=== PATIENT | female | born 1955 | race Caucasian/White ===

== ENCOUNTER 2017-09-26 06:36 | Day surgery (SDC) | payer OTHER, SELFPAY ==
--- NOTE | 2017-09-22 16:42 | PCM.HP.BLA ---
History and Physical DATE OF SERVICE: 09/26/2017 SCHEDULED PROCEDURE: Open reduction internal fixation right proximal humerus HISTORY OF PRESENT ILLNESS: This is a 61-year-old female who presented to [facility] due to a fall on ice on September 15, 2017. Patient was evaluated in the emergency room department at [facility] and placed in a sling. Patient sustained a fracture of the proximal humerus. Patient is right-hand dominant. Patient has increased pain which is constant, sharp, and stabbing with any motion of the right upper extremity. She does note improvement with immobilization. She has been using Tylenol and Advil for pain control. Patient does not recall any shoulder pain prior to this fall. Patient did undergo a CT scan of the right shoulder which did reveal a comminuted impacted fracture of the humeral head neck junction. After discussion with Dr. Mi, the patient would like to proceed with an open reduction internal fixation right humerus. Patient lists no medical problems. She denies any current chest pain, shortness of breath, fevers chills, or recent infection. REVIEW OF SYSTEMS: ROS: Const: Denies anorexia, fever, hard of hearing, and vision problems. Reports anxiety, change in appetite and weigh changes. CV: Denies chest pain, heart murmur, irregular heartbeat and peripheral vascular disease. Resp: Denies asthma, cough, pneumonia, sleep apnea, shortness of breath, tuberculosis and wheezing. GI: Denies constipation, diarrhea, heartburn, bloody stools and vomiting, and difficulty swallowing. Reports nausea. : . (F Genital Sx) Denies incontinence. Musculo: Denies leg swelling, trouble walking and limp. Reports weakness. Skin: Denies Raynaud's, history of shingles and tattoo. Neuro: Reports numbness/tingling but denies ambulatory dysfunction, dizziness and tremor. Psych: Reports anxiety, insomnia and stress, but denies depression and mental illness. Julio/Lymph: Denies anemia, bleeding/bruising tendency and past transfusion. Reviewed, no changes. PAST MEDICAL HISTORY: Advance Care Plan: No Advance Directives Effective Date: 09/18/2017 PMH: Medical Problems: None Accidents: Torn Muscle - Tear in top of rib cage area RT Shoulder - (09/15/2017) FELL ON ICE Surgical Hx: Appendectomy - [facility] Hysterectomy - 1996 - [facility] Thermal Ablation - BACK Anesthesia Complications: Nausea, Vomiting Assistive Devices: None Reviewed, no changes. 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 Personal Habits: Cigarette Use: Never.Alcohol: Occasionally.Drug Use: Denies Use.Enjoy Exercising: Daily. Reviewed, no changes. VITALS: Ht: 63.5 Wt: 120lb Wt k.432 BMI: 20.9 BP: 138/86 Pulse: 70 Resp: 16 T: 98.2 T: 36.8C ALLERGIES: Aspirin MEDICATIONS: [place] 5-325 mg 1-2 by mouth every 6 hour as needed pain, Ondansetron HCL 8 mg 1 by mouth twice a day, Tylenol Extra Strength 500 mg as needed, Advil 200 mg as needed PRE-OP EXAM: General appearance:NORMAL Other: Eyes: Conjunctivae and lids: NORMAL Pupils: ERR Ears, Nose, Mouth, and Throat: NORMAL Other: Inspection of lips, teeth and gums: NORMAL Other: Neck: Examination of neck: no masses noted. Respiratory: Assessment of respiratory effort: NORMAL Other: Ausculation of lungs: clear to ausculation no wheeses, ronchi or rales. Cardiovascular: Ausculation of heart: regular rate and rhythem, no mummurs, gallops or rubs. Exam of carotid arteries: NORMAL Other: Gastrointestinal: Exam of abdomen: soft, nontender, nondistended bowel sounds present. Lymphatic: Palpation of nodes in neck: NORMAL Other: Palpation of nodes in Axillae: NORMAL Other: Neurological: see below Psychiatric: Orientation to time, place and person: NORMAL Other: Mood and affect: NORMAL Other: PHYSICAL EXAMINATION: Patient presents in a sling and swath. Range of motion was deferred secondary to fracture. Patient does have tenderness to palpation diffusely over the right shoulder. Resolving ecchymosis and swelling. Sensations intact to light touch to axillary, radial, median, and ulnar nerve distribution. Motor intact to AIN, PIN, and ulnar nerve. IMAGING STUDIES: 1. X-rays were reviewed from [facility] which reveals a 3 part proximal humerus fracture which is well aligned. On the lateral view there is concerns that part of the greater tuberosity fragment extends into the humeral head. 2. CT scan of the right shoulder was obtained at [facility] which shows a comminuted impacted fracture at the humeral head neck junction. IMPRESSION: 1. Right shoulder 3 part proximal humerus fracture PLAN: Dr. Mi did discuss and review with the patient all treatment options including surgical versus nonsurgical. Patient wishes to proceed with above-stated procedure. Potential risks, benefits, and complications of this procedure were discussed in detail including but not limited to , infection, nerve and blood vessel damage, persistent pain, numbness, tingling, paresthesias, blood clot, pulmonary embolism, and requirement for further surgery. The patient expressed full understanding has no further questions for the doctor. Patient does agree to proceed with the above-stated procedure and has signed the surgery consent form. ___ I have re-examined the patient. There are no clinical changes since date of exam. ___ See progress notes for changes. ___ Dictated on admission Date: Time: Signature:
--- NOTE | 2017-09-22 16:50 | HP.PCM_ITS ---
History and Physical DATE OF SERVICE: 09/26/2017 SCHEDULED PROCEDURE: Open reduction internal fixation right proximal humerus HISTORY OF PRESENT ILLNESS: This is a 61-year-old female who presented to [facility] due to a fall on ice on September 15, 2017. Patient was evaluated in the emergency room department at [facility] and placed in a sling. Patient sustained a fracture of the proximal humerus. Patient is right-hand dominant. Patient has increased pain which is constant, sharp, and stabbing with any motion of the right upper extremity. She does note improvement with immobilization. She has been using Tylenol and Advil for pain control. Patient does not recall any shoulder pain prior to this fall. Patient did undergo a CT scan of the right shoulder which did reveal a comminuted impacted fracture of the humeral head neck junction. After discussion with Dr. Mi, the patient would like to proceed with an open reduction internal fixation right humerus. Patient lists no medical problems. She denies any current chest pain, shortness of breath, fevers chills, or recent infection. REVIEW OF SYSTEMS: ROS: Const: Denies anorexia, fever, hard of hearing, and vision problems. Reports anxiety, change in appetite and weigh changes. CV: Denies chest pain, heart murmur, irregular heartbeat and peripheral vascular disease. Resp: Denies asthma, cough, pneumonia, sleep apnea, shortness of breath, tuberculosis and wheezing. GI: Denies constipation, diarrhea, heartburn, bloody stools and vomiting, and difficulty swallowing. Reports nausea. : . (F Genital Sx) Denies incontinence. Musculo: Denies leg swelling, trouble walking and limp. Reports weakness. Skin: Denies Raynaud's, history of shingles and tattoo. Neuro: Reports numbness/tingling but denies ambulatory dysfunction, dizziness and tremor. Psych: Reports anxiety, insomnia and stress, but denies depression and mental illness. Julio/Lymph: Denies anemia, bleeding/bruising tendency and past transfusion. Reviewed, no changes. PAST MEDICAL HISTORY: Advance Care Plan: No Advance Directives Effective Date: 09/18/2017 PMH: Medical Problems: None Accidents: Torn Muscle - Tear in top of rib cage area RT Shoulder - (09/15/2017) FELL ON ICE Surgical Hx: Appendectomy - 1976 [facility] Hysterectomy - 1996 - [facility] Thermal Abl[facility] - BACK Anesthesia Complications: Nausea, Vomiting Assistive Devices: None Reviewed, no changes. 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 Personal Habits: Cigarette Use: Never.Alcohol: Occasionally.Drug Use: Denies Use.Enjoy Exercising: Daily. Reviewed, no changes. VITALS: Ht: 63.5 Wt: 120lb Wt k.432 BMI: 20.9 BP: 138/86 Pulse: 70 Resp: 16 T: 98.2 T: 36.8C ALLERGIES: Aspirin MEDICATIONS: [place] 5-325 mg 1-2 by mouth every 6 hour as needed pain, Ondansetron HCL 8 mg 1 by mouth twice a day, Tylenol Extra Strength 500 mg as needed, Advil 200 mg as needed PRE-OP EXAM: General appearance:NORMAL Other: Eyes: Conjunctivae and lids: NORMAL Pupils: ERR Ears, Nose, Mouth, and Throat: NORMAL Other: Inspection of lips, teeth and gums: NORMAL Other: Neck: Examination of neck: no masses noted. Respiratory: Assessment of respiratory effort: NORMAL Other: Ausculation of lungs: clear to ausculation no wheeses, ronchi or rales. Cardiovascular: Ausculation of heart: regular rate and rhythem, no mummurs, gallops or rubs. Exam of carotid arteries: NORMAL Other: Gastrointestinal: Exam of abdomen: soft, nontender, nondistended bowel sounds present. Lymphatic: Palpation of nodes in neck: NORMAL Other: Palpation of nodes in Axillae: NORMAL Other: Neurological: see below Psychiatric: Orientation to time, place and person: NORMAL Other: Mood and affect: NORMAL Other: PHYSICAL EXAMINATION: Patient presents in a sling and swath. Range of motion was deferred secondary to fracture. Patient does have tenderness to palpation diffusely over the right shoulder. Resolving ecchymosis and swelling. Sensations intact to light touch to axillary, radial, median, and ulnar nerve distribution. Motor intact to AIN, PIN, and ulnar nerve. IMAGING STUDIES: 1. X-rays were reviewed from [facility] which reveals a 3 part proximal humerus fracture which is well aligned. On the lateral view there is concerns that part of the greater tuberosity fragment extends into the humeral head. 2. CT scan of the right shoulder was obtained at [facility] which shows a comminuted impacted fracture at the humeral head neck junction. IMPRESSION: 1. Right shoulder 3 part proximal humerus fracture PLAN: Dr. Mi did discuss and review with the patient all treatment options including surgical versus nonsurgical. Patient wishes to proceed with above- stated procedure. Potential risks, benefits, and complications of this procedure were discussed in detail including but not limited to , infection , nerve and blood vessel damage, persistent pain, numbness, tingling, paresthesias, blood clot, pulmonary embolism, and requirement for further surgery. The patient expressed full understanding has no further questions for the doctor. Patient does agree to proceed with the above-stated procedure and has signed the surgery consent form. ___ I have re-examined the patient. There are no clinical changes since date of exam. ___ See progress notes for changes. ___ Dictated on admission Date: Time: Signature:
[2017-09-26] VITALS (8 sets, daily range): BP systolic 148–179; BP diastolic 77–98; PULSE 79–105; RESP 16; TEMP 35.7–37.1; O2SAT 93–100; BMI 20.5
--- NOTE | 2017-09-26 06:50 | EKG12_ITS ---
Test Reason : PREOP Blood Pressure : / mmHG Vent. Rate : 077 BPM Atrial Rate : 077 BPM P-R Int : 148 ms QRS Dur : 090 ms QT Int : 368 ms P-R-T Axes : 071 091 061 degrees QTc Int : 416 ms Normal sinus rhythm Normal ECG No previous ECGs available Confirmed by AIME MCKEE, JASMYN ([id number]), hand former LARISA ANGUIANO ([id number]) on 10/03/2017 8:51:05 AM Referred By: Jer Mi Confirmed By:JASMYN SALOMON MD
[2017-09-26] MEDS: Cefazolin 2 GM in 0.9% Normal Saline 100 ML IV (09:19)
--- NOTE | 2017-09-26 09:26 | RAD_ITS ---
STUDY: X-RAY - RIGHT HUMERUS REASON FOR EXAM: Female, 62 years old. Fracture repair in the OR. TECHNIQUE: 2 intraoperative view(s) of the humerus. COMPARISON: None. FINDINGS: The 2 images demonstrate a metallic plate and screws along the lateral aspect of the humeral head and proximal shaft. The humeral neck fracture appears to be in normal alignment. There is no abnormality of the glenohumeral joint. 2. Refer to the operative report for further details. RAD/Humerus min 2 Views IMPRESSION: Internal fixation of a right humeral neck fracture in the OR. Electronically Signed: Hawk Alfred DO at 11:04 EST Tel [phone], Service support ,
--- NOTE | 2017-09-26 10:50 | PCM.OPRPT ---
Report of Operation Date of Procedure: 09/26/17 Pre-Operative Diagnosis: Right shoulder 3 part proximal humerus fracture, displaced Post-Operative Diagnosis: Right shoulder 3 part proximal humerus fracture, displaced Surgery/Procedure Performed:: Open reduction internal fixation right shoulder proximal humerus fracture Description of Surgical Findings:: Well reduce fracture hand ii blocker: Silvestre Smith hand ii blocker: Mervin Johnson Type of Anesthesia:: General/Regional Anesthesiologist: Jeremiah Epperson Special Medications: 2 g Ancef Specimen's removed: None Estimated Blood Loss (mL): 100 Fluids Replaced: 1200 mL crystalloid Description of Procedure: Brief history operative indications: 62-year-old female who fell on the ice 10 days ago. She presented to my office with a displaced three-part proximal humerus fracture. She is in significant pain and not tolerating nonoperative management. X-rays and CT scan were performed showing approximately migrating greater tuberosity fragment and displaced 50% neck fracture. Based on patient's poor tolerance of nonoperative treatment, displacement of the greater tuberosity fragment and fracture pattern I recommended open reduction internal fixation. Risks and benefits of the procedure were discussed the patient including but not limited to blood loss, DVTs, PEs, neurovascular damage, infection, AVN, nonunion and malunion. General risk of anesthesia including loss of life was also discussed. Patient demonstrated understanding was able to sign for consent. Procedure: On the date of the procedure patient's right shoulder was marked in the preoperative area. Patient was taken back to the operating room after receiving a block for postoperative anesthesia. When she was in the operating room she was transferred to the table in the supine position and anesthesia assumed control the C-spine airway remained controlled throughout the remainder the procedure. Anesthetic was administered and patient was placed in the beachchair position and appropriate secured to the table and all bony prominences were identified and well-padded. After she was placed in beachchair position fluoroscopy was taken to verify the appropriate views could be obtained intraoperatively and they could be. Once they are happy with our positioning patient was prepped in a sterile fashion while the surgeon scrubbed. Upon reentering the room the right upper extremity was draped in a standard orthopedic fashion and timeout was called. Everyone agreed upon the side, the site, the procedure be performed, patient identity and antibiotics given. Incision was marked out off the anterior lateral corner of the acromion. The level of the axillary nerve was marked out 5 cm distal to the acromion. Incision was taken down through skin subtenons tissue fat down to fascia. Once he got to the fascia the deltoid we identified the raphae between the lateral and anterior heads. This was split and hemostasis was obtained. At this time it could be in the subacromial space. We dissected down and were able to palpate the axillary nerve preliminary dissection to this area. Fracture of the greater tuberosity and shaft could be identified. Wound was irrigated out and fracture hematoma was irrigated. At this time we used reduction forceps to reduce the greater tuberosity to the larger head fragment and verify the reduction and laparoscopy. Once this was done a compression screw was placed to create 2 fracture fragments. Once the 2 fracture fragments were created in the greater tuberosity fragment was stabilized we then used live fluoroscopy and a Ervin to reduce the fracture in a more anatomic position. Once we are happy with our fracture reduction it was noted there was a bone void. Allograft was opened and packed into the bone void. This help maintain the reduction and a K wire was passed to help maintain the reduction. At this time a Ervin was slid down the lateral cortex of the humerus underneath all soft tissue in order to avoid injury to the axillary nerve. The plate was then slid underneath the Ervin along the cortex of the bone. The plate was then provisionally fixed approximately distally and we verified the plate was in appropriate alignment with the bone as well as appropriate fracture alignment. Once they are happy with our plate position in fracture alignment 2 cortical screws were tightened down. The remainder of the proximal locking screws were placed in the subchondral bone. We did place one calcar screw. The lower calcar screw could not be placed secondary to wrist to the axillary nerve. Once this was done live fluoroscopy was used to verify the AP and lateral reduction. We are happy with our plate placement and reduction. We did also used live fluoroscopy to verify no screws were in the joint. Once this was done and joint was taken through full range of motion under live imaging we verified no screws were in the joint. Wound was cultured out normal saline. Fascia was closed with #1 Vicryl. Skin was closed with 2-0 Vicryl and Monocryl. Steri-Strips are placed, sterile dressing was placed. Patient was placed in her sling awakened by anesthesia. She was then transferred to PACU for recovery. Postoperative plan: Patient will do pendulum swings and passive motion no overhead motion for the first 2 weeks. At 2 weeks postop we will do a wound check and begin physical therapy for passive range of motion without restrictions for 2 weeks followed by active range of motion. 6 weeks postop if x-rays are appropriate will begin weightbearing. During the course of the procedure the physician assistant director of public works played a vital role. His intimate knowledge of my steps in the procedure aided in safe and expedient completion of the procedure. The PA played a vital rolls in positioning particularly in obtaining the appropriate beach chair position and securing the patient's body and head to the table. The PA was also vital in the retraction of soft tissues during the exposure to prevent neurovascular damage. the PA was also vital and protecting soft tissues during reduction of the fracture and placement of screws as careful attention was paid to the axillary nerve. He also played a vital role in closure with my direct supervision. The PA was also important during reduction and dislocation of the joint and trials intraoperatively. Dr. Johnson was scrubbed into this case for evaluative and educational purposes. Grafts/Implants Used: Cancellus allograft croutons, Synthes 3 hole proximal humerus plate - Complications none - Admit VTE Documentation VTE Present on Admission: No VTE Mechan Device Prophylaxis: SCD's, Thigh High HOWARD Hose VTE Pharm Prophylaxis ordered?: No Reason prophylaxis not ordered:: Treatment Not Indicated
[2017-09-26] MEDS: Ketorolac 30 MG/ML Syringe IV (11:18)
== END 2017-09-26 13:55 | disposition home or self-care (01) ==
LOC: SDC 06:39 → ACINP 06:43 → AC 07:51
PROVIDERS: Visit Provider Specialist
PROC: (CPT 23615; principal; 2017-09-26 08:40)
DX: S42.291A Other displaced fracture of upper end of right humerus, initial encounter for closed fracture (principal); Z79.891 Long term (current) use of opiate analgesic; W00.0XXA Fall on same level due to ice and snow, initial encounter; Y93.9 Activity, unspecified; Y92.9 Unspecified place or not applicable; Y99.9 Unspecified external cause status
CPT/HCPCS: 23615; 73060; 76000; 93005; J7120; J2405